=== PATIENT | female | born 2000 | race Caucasian/White ===

== ENCOUNTER 2018-08-03 23:52 | Inpatient (IN) ==
[2018-08-04] MEDS ORDERED: MEPERIDINE 50 MG/1 ML VIAL IV PRN (00:33)
[2018-08-04] MEDS ORDERED: ONDANSETRON 4 MG/2 ML VIAL IV PRN ×2 (00:33→15:41)
[2018-08-04] MEDS ORDERED: LACTATED RINGERS 250 ML IV ONE (00:33)
[2018-08-04 01:02] LABS: Basophils % 0.2 % (0.0-0.8); Eosinophils # 0.1 10*3/uL (0.0-0.87); Eosinophils % 0.9 % (0.00-10.9); Hematocrit 35.9 VOL% (35.7-47.0); Hemoglobin 12.1 GM/DL (12.0-16.0); Immature Granulocytes % 0.5 %; Immature Granulocytes Absolute 0.05 #; Lymphocytes # 2.6 10*3/uL (1.4-4.0); Lymphocytes % 24.3 % (21.3-54.2); Mean Corpuscular HGB Conc 33.7 GM/DL (32-36); Mean Corpuscular Volume 89.8 FL (87-102); Mean Platelet Volume 10.1 FL (9.6-12.0); Monocytes % 7.5 % (1.7-12.7); Neutrophils % 66.6 % (38.7-73.9); Platelet Count 180 T/CUMM (130-400); Red Cell Distribution Width 12.3 % (9.3-17.3); White Blood Count 10.6 T/CUMM (4-12)
[2018-08-04] MEDS: LACTATED RINGERS 1,000 ML IV SCH ×3 (01:05→12:01)
[2018-08-04] MEDS ORDERED: CLINDAMYCIN INJ 900 MG in PREMIX 1 EACH IV SCH (01:30)
[2018-08-04 01:35] LABS: Alanine Aminotransferase 15 U/L (13-56); Albumin 3.3 G/DL (3.4-5.0); Alkaline Phosphatase 141 U/L (45-117); Aspartate Amino Transferase 15 U/L (0-37); Bilirubin,Total < 0.39 MG/DL (0.2-1.0); Blood Urea Nitrogen 15 MG/DL (7-18); Calcium 9.9 MG/DL (8.5-10.1); Glucose 86 MG/DL (74-106); Osmolality,Calculated 278.4 MOS/KG (273-304); Total Protein 6.8 G/DL (6.4-8.3)
[2018-08-04] MEDS: MEPERIDINE 25 MG/1 ML VIAL IV PRN ×2 (02:13→04:20)
[2018-08-04 04:35] LABS: HIV Antigen/Antibody Result Nonreactive (Nonreactive); Hepatitis B Surface Ag Quant < 0.10 Index; Hepatitis B Surface Ag Result Negative (Negative)
[2018-08-04] MEDS ORDERED: FAMOTIDINE 20 MG/2 ML VIAL IV ONE (05:27)
[2018-08-04] MEDS ORDERED: CITRIC ACID/SODIUM CITRATE 30 ML UDCUP PO ONE (05:27)
[2018-08-04] MEDS ORDERED: ePHEDrine 50 MG/ML AMP IV PRN (05:29)
[2018-08-04] MEDS ORDERED: fentaNYL 2 MCG/ROPIV 0.2% EPID 100 ML EPIDURAL SCH (05:30)
[2018-08-04] MEDS ORDERED: OXYTOCIN/LR 20 UNIT/1,000 ML BAG IV SCH (06:00)
[2018-08-04 08:21] LABS: Apearance,Urine CLEAR (Clear); Bilirubin,Urine Negative (Negative); Blood, Urine Negative (Negative); Glucose,Urine (UA) Negative (Negative); Ketones,Urine 20 mg/dL (Negative); Mucus,Urine Occasional /LPF (Occasional); Nitrite,Urine Negative (Negative); Protein,Urine Negative; RBC,Urine 1 /HPF (0-4); Squamous Epithelial Cell,Urine Occasional /HPF (0-10); Urine Color Yellow (Yellow); Urine Specific Gravity 1.018 (1.001-1.035); Urine Urobilinogen < 2.0 EU/DL (0.2-1.0)
[2018-08-04] MEDS ORDERED: miSOPROStol 200 MCG TABLET ONE (12:05)
[2018-08-04] MEDS ORDERED: METHYLERGONOVINE 0.2 MG/1 ML AMP ONE (12:05)
[2018-08-04] MEDS ORDERED: LIDOCAINE 1% 50 ML VIAL ONE (12:05)
[2018-08-04 13:19] LABS: Cord Arterial Blood HCO3 16.5 MMOL/L
[2018-08-04 13:20] LABS: Cord Venous Blood HCO3 22.1 MMOL/L; Cord Venous Blood PCO2 45.7 MMHG; Cord Venous Blood PO2 34.1 MMHG
[2018-08-04] MEDS ORDERED: BENZOCAINE 20%/MENTHOL 0.5% SPRAY 56 GM CAN TOP PRN (15:41)
[2018-08-04] MEDS ORDERED: HYDROCORTISONE 2.5% RECTAL CREAM 30 GM TUBE TOP PRN (15:41)
[2018-08-04] MEDS ORDERED: LANOLIN 50% CREAM 0.3 OZ TUBE TOP PRN (15:41)
[2018-08-04] MEDS ORDERED: DIPH/TET/ACEL PERT BOOSTER VACCINE 0.5 ML VIAL IM ONE (15:41)
[2018-08-04] MEDS ORDERED: ACETAMINOPHEN/CODEINE 300-30 MG TABLET PO PRN (15:41)
[2018-08-04] MEDS ORDERED: oxyCODONE/ACETAMINOPHEN 5-325 MG TABLET PO PRN ×2 (15:41)
[2018-08-04] MEDS ORDERED: ACETAMINOPHEN 325 MG TABLET PO PRN (15:41)
[2018-08-04] MEDS ORDERED: MEASLES/MUMPS/RUBELLA VACCINE 0.5 ML VIAL SUBCUT ONE (15:41)
[2018-08-04] MEDS ORDERED: WITCH HAZEL PADS 100/JAR TOP PRN (15:41)
[2018-08-04] MEDS ORDERED: RHO(D) IMMUNE GLOBULIN 300 MCG SYRINGE IM ONE (15:41)
[2018-08-04] MEDS ORDERED: BISACODYL 10 MG SUPP RECTAL PRN (15:41)
[2018-08-04] MEDS: IBUPROFEN 800 MG TABLET PO PRN (16:56)
[2018-08-04] MEDS: DOCUSATE SODIUM 100 MG CAPSULE PO SCH (21:15)
[2018-08-05 05:19] LABS: Basophils % 0.2 % (0.0-0.8); Eosinophils # 0.1 10*3/uL (0.0-0.87); Eosinophils % 1.1 % (0.00-10.9); Hemoglobin 9.6 GM/DL (12.0-16.0); Immature Granulocytes % 0.6 %; Immature Granulocytes Absolute 0.06 #; Lymphocytes # 2.7 10*3/uL (1.4-4.0); Lymphocytes % 25.9 % (21.3-54.2); Mean Corpuscular HGB Conc 34.3 GM/DL (32-36); Mean Corpuscular Volume 90.3 FL (87-102); Mean Platelet Volume 10.9 FL (9.6-12.0); Monocytes % 6.7 % (1.7-12.7); Neutrophils % 65.5 % (38.7-73.9); Platelet Count 140 T/CUMM (130-400); Red Cell Distribution Width 12.5 % (9.3-17.3); White Blood Count 10.4 T/CUMM (4-12)
[2018-08-05] MEDS: DOCUSATE SODIUM 100 MG CAPSULE PO SCH ×2 (09:01→21:03)
[2018-08-05] MEDS: FERROUS SULFATE 325 MG TABLET PO SCH (09:02)
[2018-08-05] MEDS: IBUPROFEN 800 MG TABLET PO PRN (21:05)
[2018-08-06] MEDS: DOCUSATE SODIUM 100 MG CAPSULE PO SCH (10:00)
[2018-08-06] MEDS: FERROUS SULFATE 325 MG TABLET PO SCH (10:02)
[2018-08-06 11:28] VITALS: BP 115/60
== END 2018-08-06 14:10 | disposition home or self-care (01) | DRG 560 ==
LOC: N.LDOUT 23:52 → N.LD 23:54 → N.OB 08-04 15:21
PROVIDERS: ADMIT Obstetrics & Gynecology; ATTEND Obstetrics & Gynecology

== ENCOUNTER 2020-04-19 19:53 | Inpatient (IN) ==
[2020-04-19] MEDS ORDERED: ONDANSETRON 4 MG/2 ML VIAL IV PRN (20:11)
[2020-04-19] MEDS ORDERED: ACETAMINOPHEN 325 MG TABLET PO PRN (20:11)
[2020-04-19] MEDS ORDERED: MEPERIDINE 50 MG/1 ML VIAL IV PRN (20:11)
[2020-04-19] MEDS ORDERED: BUTORPHANOL 2 MG/ML VIAL IV PRN (20:11)
[2020-04-19] MEDS ORDERED: LACTATED RINGERS 1,000 ML IV SCH (20:30)
[2020-04-19 20:38] LABS: Basophils % 0.2 % (0.0-0.8); Eosinophils # 0.1 10*3/uL (0.0-0.87); Eosinophils % 0.8 % (0.00-10.9); Hematocrit 38.2 VOL% (35.7-47.0); Hemoglobin 13.1 GM/DL (12.0-16.0); Immature Granulocytes % 0.9 %; Lymphocytes % 25.6 % (21.3-54.2); Mean Corpuscular HGB Conc 34.3 GM/DL (32-36); Mean Corpuscular Volume 90.1 FL (87-102); Mean Platelet Volume 9.9 FL (9.6-12.0); Monocytes % 7.9 % (1.7-12.7); Neutrophils % 64.6 % (38.7-73.9); Platelet Count 213 T/CUMM (130-400); Red Blood Count 4.24 MC/CUMM (3.8-5.5); Red Cell Distribution Width 12.2 % (9.3-17.3); White Blood Count 11.7 T/CUMM (4-12)
[2020-04-19] MEDS ORDERED: CITRIC ACID/SODIUM CITRATE 30 ML UDCUP PO ONE (20:41)
[2020-04-19] MEDS ORDERED: LACTATED RINGERS 1,000 ML IV ONE (20:41)
[2020-04-19] MEDS ORDERED: FAMOTIDINE 20 MG/2 ML VIAL IV ONE (20:41)
[2020-04-19] MEDS ORDERED: ePHEDrine 50 MG/ML VIAL IV PRN (20:41)
[2020-04-19 20:42] LABS: Bacteria,Urine Moderate /HPF (Few); Bilirubin,Urine Negative (Negative); Blood, Urine Moderate mg/dL (Negative); Glucose,Urine (UA) Negative (Negative); Ketones,Urine Negative (Negative); Mucus,Urine Occasional /LPF (Occasional); Nitrite,Urine Negative (Negative); Protein,Urine Negative; RBC,Urine 11 /HPF (0-4); Squamous Epithelial Cell,Urine Occasional /HPF (0-10); Urine Appearance CLEAR (Clear); Urine Color Straw (Yellow); Urine Specific Gravity 1.006 (1.001-1.035); Urine Urobilinogen < 2.0 EU/DL (0.2-1.0); WBC,Urine 6 /HPF (0-6)
[2020-04-19] MEDS ORDERED: MEPERIDINE 50 MG/1 ML VIAL IV ONE (20:47)
[2020-04-19] MEDS ORDERED: fentaNYL 2 MCG/ROPIV 0.2% EPID 100 ML EPIDURAL SCH (21:00)
[2020-04-19 21:02] LABS: Alanine Aminotransferase 16 U/L (13-56); Albumin 3.1 G/DL (3.4-5.0); Alkaline Phosphatase 129 U/L (45-117); Aspartate Amino Transferase 18 U/L (0-37); Bilirubin,Total < 0.39 MG/DL (0.2-1.0); Blood Urea Nitrogen 8 MG/DL (7-18); Calcium 9.6 MG/DL (8.5-10.1); Carbon Dioxide 28 MMOL/L (21-32); Estimated Glom Filtration Rate 112 ML/MIN; Glucose 81 MG/DL (74-106); Osmolality,Calculated 273.5 MOS/KG (273-304); Potassium 3.8 MMOL/L (3.5-5.1); Sodium 139 MMOL/L (136-145)
[2020-04-19] MEDS ORDERED: OXYTOCIN/LR 20 UNIT/1,000 ML BAG IV SCH (21:30)
[2020-04-19] MEDS ORDERED: miSOPROStoL 200 MCG TABLET ONE (21:52)
[2020-04-19] MEDS ORDERED: METHYLERGONOVINE 0.2 MG/1 ML AMP ONE (21:52)
[2020-04-19] MEDS ORDERED: CARBOPROST TROMETHAMINE 250 MCG/ML AMP IM ONE (21:52)
[2020-04-19 22:56] LABS: Cord Arterial Blood HCO3 25.9 MMOL/L; Cord Venous Blood HCO3 24.7 MMOL/L; Cord Venous Blood PCO2 49.7 MMHG; Cord Venous Blood PO2 25.8
[2020-04-20] MEDS: IBUPROFEN 800 MG TABLET PO PRN ×2 (00:18→18:04)
[2020-04-20] MEDS ORDERED: RHO(D) IMMUNE GLOBULIN 300 MCG SYRINGE IM ONE (01:59)
[2020-04-20] MEDS ORDERED: ACETAMINOPHEN 325 MG TABLET PO PRN (01:59)
[2020-04-20] MEDS ORDERED: BENZOCAINE 20%/MENTHOL 0.5% SPRAY 56 GM CAN TOP PRN (01:59)
[2020-04-20] MEDS ORDERED: WITCH HAZEL PADS 100/JAR TOP PRN (01:59)
[2020-04-20] MEDS ORDERED: BISACODYL 10 MG SUPP RECTAL PRN (01:59)
[2020-04-20] MEDS ORDERED: LANOLIN 50% CREAM 0.3 OZ TUBE TOP PRN (01:59)
[2020-04-20] MEDS ORDERED: DIPH/TET/ACEL PERT BOOSTER VACCINE 0.5 ML VIAL IM ONE (01:59)
[2020-04-20] MEDS ORDERED: IBUPROFEN 800 MG TABLET PO PRN (01:59)
[2020-04-20] MEDS ORDERED: MEASLES/MUMPS/RUBELLA VACCINE 0.5 ML VIAL SUBCUT ONE (01:59)
[2020-04-20] MEDS ORDERED: oxyCODONE/ACETAMINOPHEN 5-325 MG TABLET PO PRN (01:59)
[2020-04-20] MEDS ORDERED: OXYTOCIN/LR 20 UNIT/1,000 ML BAG IV ONE (01:59)
[2020-04-20] MEDS ORDERED: HYDROCORTISONE 2.5% RECTAL CREAM 30 GM TUBE TOP PRN (01:59)
[2020-04-20] MEDS: oxyCODONE/ACETAMINOPHEN 5-325 MG TABLET PO PRN ×2 (02:53→20:16)
[2020-04-20 06:14] LABS: Basophils % 0.2 % (0.0-0.8); Eosinophils % 0.1 % (0.00-10.9); Hematocrit 31.3 VOL% (35.7-47.0); Hemoglobin 11.3 GM/DL (12.0-16.0); Immature Granulocytes % 0.8 %; Immature Granulocytes Absolute 0.11 #; Lymphocytes # 2.5 10*3/uL (1.4-4.0); Lymphocytes % 17.7 % (21.3-54.2); Mean Corpuscular HGB Conc 36.1 GM/DL (32-36); Mean Corpuscular Volume 88.2 FL (87-102); Mean Platelet Volume 10.2 FL (9.6-12.0); Monocytes % 7.5 % (1.7-12.7); Neutrophils % 73.7 % (38.7-73.9); Platelet Count 158 T/CUMM (130-400); Red Blood Count 3.55 MC/CUMM (3.8-5.5); Red Cell Distribution Width 12.1 % (9.3-17.3); White Blood Count 14.3 T/CUMM (4-12)
[2020-04-20] MEDS: DOCUSATE SODIUM 100 MG CAPSULE PO SCH ×2 (08:24→20:17)
[2020-04-21] MEDS: oxyCODONE/ACETAMINOPHEN 5-325 MG TABLET PO PRN (03:45)
[2020-04-21 08:02] VITALS: BP 94/53
[2020-04-21] MEDS: DOCUSATE SODIUM 100 MG CAPSULE PO SCH (08:12)
== END 2020-04-21 14:00 | disposition home or self-care (01) | DRG 807 ==
LOC: N.LDOUT 19:53 → N.LD 19:55 → N.OB 04-20 01:15
PROVIDERS: ADMIT Obstetrics & Gynecology; ATTEND Obstetrics & Gynecology